=== PATIENT | male | born 1960 | race Caucasian/White ===

== ENCOUNTER 2017-07-10 01:18 | Emergency (ER) | payer OTHER ==
[~2017-07-10] VITALS: Ht 172.7 cm; Wt 81.5 kg
[2017-07-10 05:21] VITALS: BP 133/82
[2017-07-10] MEDS ORDERED: METHOCARBAMOL 500 MG TABLET PO ONE (05:30)
[2017-07-10] MEDS ORDERED: IBUPROFEN 600 MG TABLET PO ONE (05:30)
== END 2017-07-10 05:42 | disposition home or self-care (01) ==
LOC: EMS 01:20
DX: S13.4XXA Sprain of ligaments of cervical spine, initial encounter (principal); M54.5 Low back pain; Z88.5 Allergy status to narcotic agent; Z88.6 Allergy status to analgesic agent; V49.50XA Passenger injured in collision with unspecified motor vehicles in traffic accident, initial encounter; Y93.89 Activity, other specified; Y92.89 Other specified places as the place of occurrence of the external cause; Y99.8 Other external cause status
CPT/HCPCS: 72100; 99284